=== PATIENT | female | born 1970 | race Caucasian/White ===

== ENCOUNTER 2018-10-09 08:09 | Outpatient (RCR) | payer OTHER | END 2018-10-26 | LOC: OT 08:09 | PROVIDERS: ATTEND Specialist | DX: M77.11 Lateral epicondylitis, right elbow (principal); M25.521 Pain in right elbow; M75.41 Impingement syndrome of right shoulder; S46.001D Unspecified injury of muscle(s) and tendon(s) of the rotator cuff of right shoulder, subsequent encounter; M25.611 Stiffness of right shoulder, not elsewhere classified; R53.1 Weakness ==

== ENCOUNTER → 2019-01-26 | Outpatient (RCR) | payer OTHER | LOC: OT 01-06 13:49 | PROVIDERS: ATTEND Specialist | DX: M77.11 Lateral epicondylitis, right elbow (principal); M75.41 Impingement syndrome of right shoulder ==

== ENCOUNTER 2019-01-27 09:24 | Outpatient (RCR) | payer OTHER | END 2019-02-26 | LOC: OT 09:24 | PROVIDERS: ATTEND Specialist | DX: M77.11 Lateral epicondylitis, right elbow (principal); M25.521 Pain in right elbow; S46.001D Unspecified injury of muscle(s) and tendon(s) of the rotator cuff of right shoulder, subsequent encounter; M25.511 Pain in right shoulder; R53.1 Weakness; M25.611 Stiffness of right shoulder, not elsewhere classified ==